=== PATIENT | female | born 1985 | race Caucasian/White ===

== ENCOUNTER 2024-11-25 17:21 | Emergency (ER) | payer OTHER ==
[~2024-11-25] VITALS: Ht 165.1 cm; Wt 119.0 kg
[~2024-11-25 17:21] MED LIST: ACETAMINOPHEN500 MG PO; BUPROPION HCL150 M2 PO; BUPROPION XL150 MG PO; I-VITE TABLET1 EAC1 PO; IBUPROFEN600 MG PO; LOVENOX100 MG/1 M SUB-Q; OMEPRAZOLE20 M2 PO; OXYCODON-ACETA1 EAC2 PO; PROZAC20 MG PO; WARFARIN SODIUM5 MG PO
[2024-11-25] MEDS ORDERED: XARELTO1 EACH PO (20:33)
[2024-11-25 20:42] LABS: BASOPHILS 0.5 % (0.1-1.2); EOSINOPHILS 1.1 % (0.7-5.8); LYMPHOCYTES 25.8 % (19.3-51.7); MCH 27.6 PG (25.6-32.2); MCHC 33.3 g/dL (32.2-35.5); MCV 82.8 fL (79.4-94.8); MONOCYTES 6.7 % (4.7-12.5); NEUTROPHILS 65.6 % (34.0-71.1); RBC 4.60 M/uL (3.93-5.22)
[2024-11-25 20:57] LABS: INR 1.03 (0.80-1.30); PROTIME 12.7 Sec (11.2-14.2)
[2024-11-25 20:58] LABS: ALT (SGPT) 17.0 U/L (14-59); AST (SGOT) 8.0 U/L (15-37); GLOMERULAR FILTRATION RATE,EST 107.0 mL/min (>60); PROTEIN, TOTAL 7.4 g/dL (6.4-8.2); UREA NITROGEN 7.0 mg/dL (7-18)
[2024-11-25 21:25] VITALS: BP 128/59
== END 2024-11-25 21:25 | disposition home or self-care (01) ==
LOC: ED 17:21
PROVIDERS: Internal Medicine
DX: I82.452 Acute embolism and thrombosis of left peroneal vein (principal); Z88.0 Allergy status to penicillin; Z79.899 Other long term (current) drug therapy
CPT/HCPCS: 36415; 80053; 84703; 85025; 85379; 85610; 85730; 93971; 99284-25